=== PATIENT | male | born 1970 | race Caucasian/White ===

== ENCOUNTER → 2019-08-07 14:16 | Outpatient (BNVA) | payer MEDICARE, MEDICAID, SELFPAY | PROVIDERS: Family Provider Family Medicine; PCP Family Medicine; Visit Provider Nurse Practitioner | DX: F20.89 Other schizophrenia (principal); G47.30 Sleep apnea, unspecified | CPT/HCPCS: 99213 ==

== ENCOUNTER → 2019-09-04 14:20 | Outpatient (BNVA) | payer MEDICARE, MEDICAID, SELFPAY | PROVIDERS: Family Provider Family Medicine; PCP Family Medicine; Visit Provider Nurse Practitioner | DX: F20.89 Other schizophrenia (principal) | CPT/HCPCS: 80061; 83036; 99213 ==

== ENCOUNTER → 2019-10-02 14:27 | Outpatient (BNVA) | payer MEDICARE, MEDICAID, SELFPAY | PROVIDERS: Family Provider Family Medicine; PCP Family Medicine; Visit Provider Nurse Practitioner | DX: G47.30 Sleep apnea, unspecified (principal); F20.89 Other schizophrenia | CPT/HCPCS: 99213 ==

== ENCOUNTER → 2019-10-30 14:21 | Outpatient (BNVA) | payer MEDICARE, MEDICAID, SELFPAY | PROVIDERS: Family Provider Family Medicine; PCP Family Medicine; Visit Provider Nurse Practitioner | DX: G47.30 Sleep apnea, unspecified (principal); F20.89 Other schizophrenia | CPT/HCPCS: 99213 ==

== ENCOUNTER → 2019-12-04 08:21 | Outpatient (BNVA) | payer MEDICARE, MEDICAID, SELFPAY | PROVIDERS: Family Provider Family Medicine; PCP Family Medicine; Visit Provider Nurse Practitioner | DX: F20.89 Other schizophrenia (principal); F41.1 Generalized anxiety disorder | CPT/HCPCS: 99213 ==

== ENCOUNTER → 2019-12-24 14:48 | Outpatient (BNVA) | payer MEDICARE, MEDICAID, SELFPAY ==
[2019-09-11 10:32] VITALS: BP 122/78
== END ==
PROVIDERS: Family Provider Family Medicine; PCP Family Medicine; Visit Provider Family Medicine
DX: I10 Essential (primary) hypertension (principal); E03.9 Hypothyroidism, unspecified; E78.5 Hyperlipidemia, unspecified; E11.9 Type 2 diabetes mellitus without complications
CPT/HCPCS: 80053; 82044; 84443

== ENCOUNTER → 2020-01-02 08:22 | Outpatient (BNVA) | payer MEDICARE, MEDICAID, SELFPAY ==
[2019-09-11 10:32] VITALS: BP 122/78
== END ==
PROVIDERS: Family Provider Family Medicine; PCP Family Medicine; Visit Provider Nurse Practitioner
DX: G47.30 Sleep apnea, unspecified (principal); F20.89 Other schizophrenia
CPT/HCPCS: 99213

== ENCOUNTER → 2020-01-30 08:45 | Outpatient (BNVA) | payer MEDICARE, MEDICAID, SELFPAY ==
[2019-09-11 10:32] VITALS: BP 122/78
== END ==
PROVIDERS: Family Provider Family Medicine; PCP Family Medicine; Visit Provider Nurse Practitioner
DX: F20.89 Other schizophrenia (principal); F43.12 Post-traumatic stress disorder, chronic
CPT/HCPCS: 99213

== ENCOUNTER → 2020-02-04 14:17 | Outpatient (BNVA) | payer MEDICARE, MEDICAID, SELFPAY ==
[2019-09-11 10:32] VITALS: BP 122/78
== END ==
PROVIDERS: Family Provider Family Medicine; PCP Family Medicine; Visit Provider Nurse Practitioner
DX: Z79.899 Other long term (current) drug therapy (principal)
CPT/HCPCS: 80061; 83036

== ENCOUNTER → 2020-02-27 08:00 | Outpatient (BNVA) | payer MEDICARE, MEDICAID, SELFPAY ==
[2020-02-11 09:56] VITALS: BP 157/97; BMI 40.1
== END ==
PROVIDERS: Family Provider Family Medicine; Visit Provider Nurse Practitioner
DX: F20.89 Other schizophrenia (principal)
CPT/HCPCS: 96372; 99213

== ENCOUNTER → 2020-03-26 12:00 | Outpatient (BNVA) | payer MEDICAID, SELFPAY ==
[2020-02-11 09:56] VITALS: BP 157/97; BMI 40.1
== END ==
PROVIDERS: Family Provider Family Medicine; Visit Provider Nurse Practitioner
DX: G47.30 Sleep apnea, unspecified (principal); F20.89 Other schizophrenia
CPT/HCPCS: 99213

== ENCOUNTER → 2020-04-23 11:54 | Outpatient (BNVA) | payer MEDICARE, MEDICAID, SELFPAY ==
[2020-02-11 09:56] VITALS: BP 157/97; BMI 40.1
== END ==
PROVIDERS: Family Provider Family Medicine; Visit Provider Nurse Practitioner
DX: F20.89 Other schizophrenia (principal)
CPT/HCPCS: 96372; 99213

== ENCOUNTER → 2020-05-21 11:54 | Outpatient (BNVA) | payer MEDICARE, MEDICAID, SELFPAY ==
[2020-02-11 09:56] VITALS: BP 157/97; BMI 40.1
== END ==
PROVIDERS: Family Provider Family Medicine; Visit Provider Nurse Practitioner
DX: F20.89 Other schizophrenia (principal)
CPT/HCPCS: 96372; 99213

== ENCOUNTER 2020-06-01 10:18 | Outpatient (CLI) | payer MEDICARE, MEDICAID, SELFPAY ==
[2020-02-11 09:56] VITALS: BP 157/97; BMI 40.1
[2020-06-01 10:55] VITALS: BMI 38.9
--- NOTE | 2020-06-01 10:55 | ECG_ITS ---
[facility] Test Date: 2020-06-01 Pat Name: Boy Ramos Department: Room: Gender: Male Pusher Runner: : 1970 Requested By: Carley Rodriguez Order Number: [id number] Chio MD: SANCHEZ GUTIERREZ Interpretive Statements NAME OF STUDY: EXERCISE SESTAMIBI STRESS TEST INDICATION: Chest Pain, EXERCISE DATA: The patient was exercised by Tyler protocol. Baseline heart rate was 74 beats per minute. Baseline blood pressure was 145/92 millimeters of mercury. Target heart rate was 171 beats per minute. Maximum heart rate achieved was 153, which was 89 % of the target heart rate. Maximum blood pressure was 229/117 millimeters of mercury. Total exercise time was 4 minutes 30 seconds. Maximum METs achieved was 7.0, maximum VO2 was 24.5. The reason for ending the test was maximum effort achieved. The patient complained of shortness of breath during the stress test, which then resolved at the end of the test. ELECTROCARDIOGRAM: BASELINE: Sinus rhythm, normal axis, no significant ST-T changes at the baseline noted. EXERCISE: At the peak exercise level, no significant ST-T changes suggestive of ischemia noted. RECOVERY: During the recovery period, heart rate dropped appropriately. No significant ST-T changes in the recovery suggestive of ischemia noted. CONCLUSION: 1. Exercise capacity poor. 2. Heart rate response was appropriate. 3. Blood pressure response was hypertensive. 4. Symptoms not suggestive of ischemia. 5. Electrocardiogram portion of the stress test was not suggestive of ischemia. 6. Nuclear scan will be documented separately. Electronically Signed On 06-04-2020 18:03:54 CDT by SANCHEZ GUTIERREZ [id number]
--- NOTE | 2020-06-01 10:56 | NMCV_ITS ---
NM louise perf SPECT r/s* [id number] Byo Ramos Age: 50 Gender: M : 1970 Exam Date: 06/01/2020 11:36 Ordering Phys: Carley Rodriguez DO Technologist: DOMINICK Yu Exam Location: [facility] Indications: Chest pain STRESS TEST Please see separate stress test report in Ephiphany for full findings IMAGE PROTOCOL Rest/Stress 1 Exercise Day Radiopharmaceutical Dose (mCi) Administration Site Administered by Rest: Tc-99m 10.9 IV DOMINICK Lin Sestamibi Stress:Tc-99m 32.7 IV DOMINICK Yu Sestamipetra Rest: 01-Jun-2020 60 Discovery 630 Stress: 01-Jun-2020 30 Discovery 630 Radiopharmaceutical was injected at 85 % maximum heart rate. Images obtained in supine and prone position. SPECT RESULTS Technical Quality: Good Raw Data Analysis: Normal Image Corrections: Patient motion artifact - motion correction applied stress supine and rest images. Summed Stress Score: 1 Summed Rest Score: 2 Summed Difference Score: 1 PERFUSION FINDINGS Medium-sized area of decreased tracer uptake noted in basal to mid anterior wall on the rest images which improved significantly over stress images suggestive of artifact. Medium-sized area of fixed perfusion defect noted in basal to distal inferior wall on both rest and stress images suggestive of artifact versus scarring. FUNCTIONAL RESULTS (calculated via Gated SPECT) Stress Image LV EF (%): 69 Stress EDV (mL):84 TID: 0.7 Stress ESV (mL):26 Rest Image LV EF (%): 69 FUNCTIONAL FINDINGS: There is normal left ventricular systolic function. IMPRESSIONS This study is negative for ischemia. EKG segment will be documented separately. Khurram Schmitt MD (Electronically Signed) Final Date: 01 June 2020 18:27 S
[2020-06-01 13:23] VITALS: BP 189/73; PULSE 98
== END 2020-06-01 10:19 | disposition home or self-care (01) ==
LOC: CDL 10:21
PROVIDERS: Visit Provider Family Medicine
DX: R07.89 Other chest pain (principal)
CPT/HCPCS: 78452; 93017; A9500

== ENCOUNTER → 2020-06-08 14:46 | Outpatient (BNVA) | payer OTHER, SELFPAY ==
[2020-02-11 09:56] VITALS: BP 157/97; BMI 40.1
== END ==
PROVIDERS: Visit Provider Nurse Practitioner
DX: F20.89 Other schizophrenia (principal); Z79.899 Other long term (current) drug therapy
CPT/HCPCS: 80061; 83036

== ENCOUNTER → 2020-06-18 11:57 | Outpatient (BNVA) | payer MEDICARE, MEDICAID, SELFPAY ==
[2020-06-09 16:09] VITALS: BP 138/84; BMI 39.2
== END ==
PROVIDERS: Visit Provider Nurse Practitioner
DX: F20.89 Other schizophrenia (principal); G47.30 Sleep apnea, unspecified
CPT/HCPCS: 99213

== ENCOUNTER → 2020-07-23 11:57 | Outpatient (BNVA) | payer MEDICARE, MEDICAID, SELFPAY ==
[2020-06-09 16:09] VITALS: BP 138/84; BMI 39.2
== END ==
PROVIDERS: Visit Provider Nurse Practitioner
DX: F20.89 Other schizophrenia (principal)
CPT/HCPCS: 96372; 99213

== ENCOUNTER → 2020-08-20 15:23 | Outpatient (BNVA) | payer MEDICARE, MEDICAID, SELFPAY ==
[2020-06-09 16:09] VITALS: BP 138/84; BMI 39.2
== END ==
PROVIDERS: Visit Provider Nurse Practitioner
DX: F20.89 Other schizophrenia (principal)
CPT/HCPCS: 96372; 99213

== ENCOUNTER → 2020-09-16 10:11 | Outpatient (BNVA) | payer MEDICARE, MEDICAID, SELFPAY ==
[2020-06-09 16:09] VITALS: BP 138/84; BMI 39.2
== END ==
PROVIDERS: Visit Provider Family Medicine
DX: I10 Essential (primary) hypertension (principal); E03.9 Hypothyroidism, unspecified; E78.5 Hyperlipidemia, unspecified; E11.9 Type 2 diabetes mellitus without complications
CPT/HCPCS: 80053; 82043; 84443; 85025

== ENCOUNTER → 2020-09-21 13:31 | Outpatient (BNVA) | payer MEDICARE, MEDICAID, SELFPAY ==
[2020-06-09 16:09] VITALS: BP 138/84; BMI 39.2
== END ==
PROVIDERS: Visit Provider Nurse Practitioner
DX: F20.89 Other schizophrenia (principal)
CPT/HCPCS: 96372; 99214

== ENCOUNTER → 2020-10-25 14:52 | Outpatient (BNVA) | payer MEDICARE, MEDICAID, SELFPAY ==
[2020-06-09 16:09] VITALS: BP 138/84; BMI 39.2
== END ==
PROVIDERS: Visit Provider Nurse Practitioner
DX: F20.89 Other schizophrenia (principal)
CPT/HCPCS: 96372; 99214

== ENCOUNTER → 2020-11-25 14:51 | Outpatient (BNVA) | payer MEDICARE, MEDICAID, SELFPAY ==
[2020-06-09 16:09] VITALS: BP 138/84; BMI 39.2
== END ==
PROVIDERS: Visit Provider Nurse Practitioner
DX: F20.89 Other schizophrenia (principal); F43.12 Post-traumatic stress disorder, chronic
CPT/HCPCS: 96372; 99214

== ENCOUNTER → 2020-12-24 14:57 | Outpatient (BNVA) | payer MEDICARE, MEDICAID, SELFPAY ==
[2020-06-09 16:09] VITALS: BP 138/84; BMI 39.2
== END ==
PROVIDERS: Visit Provider Nurse Practitioner
DX: F20.89 Other schizophrenia (principal)
CPT/HCPCS: 96372; 99214

== ENCOUNTER → 2021-01-25 14:58 | Outpatient (BNVA) | payer MEDICARE, MEDICAID, SELFPAY ==
[2020-06-09 16:09] VITALS: BP 138/84; BMI 39.2
== END ==
PROVIDERS: Visit Provider Nurse Practitioner
DX: F20.89 Other schizophrenia (principal)
CPT/HCPCS: 99214; 96372

== ENCOUNTER → 2021-02-22 15:08 | Outpatient (BNVA) | payer MEDICARE, MEDICAID, SELFPAY ==
[2020-06-09 16:09] VITALS: BP 138/84; BMI 39.2
== END ==
PROVIDERS: Visit Provider Nurse Practitioner
DX: F20.89 Other schizophrenia (principal)
CPT/HCPCS: 96372; 99214

== ENCOUNTER → 2021-03-22 14:49 | Outpatient (BNVA) | payer MEDICARE, MEDICAID, SELFPAY ==
[2020-06-09 16:09] VITALS: BP 138/84; BMI 39.2
== END ==
PROVIDERS: Visit Provider Nurse Practitioner
DX: F20.89 Other schizophrenia (principal)
CPT/HCPCS: 96372; 99214

== ENCOUNTER → 2021-04-08 15:38 | Outpatient (BNVA) | payer MEDICARE, MEDICAID, SELFPAY ==
[2020-06-09 16:09] VITALS: BP 138/84; BMI 39.2
== END ==
PROVIDERS: PCP Family Medicine; Visit Provider Family Medicine
DX: E11.9 Type 2 diabetes mellitus without complications (principal); E03.9 Hypothyroidism, unspecified
CPT/HCPCS: 80053; 83036; 84443

== ENCOUNTER → 2021-04-26 14:47 | Outpatient (BNVA) | payer MEDICARE, MEDICAID, SELFPAY ==
[2020-06-09 16:09] VITALS: BP 138/84; BMI 39.2
== END ==
PROVIDERS: Visit Provider Nurse Practitioner
DX: F20.89 Other schizophrenia (principal)
CPT/HCPCS: 96372; 99214

== ENCOUNTER → 2021-05-26 14:53 | Outpatient (BNVA) | payer MEDICARE, MEDICAID, SELFPAY ==
[2020-06-09 16:09] VITALS: BP 138/84; BMI 39.2
== END ==
PROVIDERS: PCP Family Medicine; Visit Provider Nurse Practitioner
DX: F20.89 Other schizophrenia (principal)
CPT/HCPCS: 96372; 99214

== ENCOUNTER → 2021-06-07 16:14 | Outpatient (BNVA) | payer OTHER, SELFPAY ==
[2020-06-09 16:09] VITALS: BP 138/84; BMI 39.2
== END ==
PROVIDERS: PCP Family Medicine; Visit Provider Nurse Practitioner
DX: F20.89 Other schizophrenia (principal)
CPT/HCPCS: 80061

== ENCOUNTER → 2021-06-24 15:03 | Outpatient (BNVA) | payer MEDICARE, MEDICAID, SELFPAY ==
[2021-06-09 11:58] VITALS: BP 123/74; BMI 37.9
== END ==
PROVIDERS: PCP Family Medicine; Visit Provider Family Medicine
DX: Z12.5 Encounter for screening for malignant neoplasm of prostate (principal)
CPT/HCPCS: G0103

== ENCOUNTER → 2021-06-27 14:39 | Outpatient (BNVA) | payer MEDICARE, MEDICAID, SELFPAY ==
[2021-06-09 11:58] VITALS: BP 123/74; BMI 37.9
== END ==
PROVIDERS: Visit Provider Nurse Practitioner
DX: F20.89 Other schizophrenia (principal)
CPT/HCPCS: 96372; 99214

== ENCOUNTER → 2021-07-26 14:47 | Outpatient (BNVA) | payer MEDICARE, MEDICAID, SELFPAY ==
[2021-06-09 11:58] VITALS: BP 123/74; BMI 37.9
== END ==
PROVIDERS: Visit Provider Nurse Practitioner
DX: F20.89 Other schizophrenia (principal)
CPT/HCPCS: 99214

== ENCOUNTER → 2021-08-23 14:53 | Outpatient (BNVA) | payer MEDICARE, MEDICAID, SELFPAY ==
[2021-06-09 11:58] VITALS: BP 123/74; BMI 37.9
== END ==
PROVIDERS: Visit Provider Nurse Practitioner
DX: F20.89 Other schizophrenia (principal)
CPT/HCPCS: 96372; 99214

== ENCOUNTER → 2021-09-01 16:42 | Outpatient (BNVA) | payer MEDICARE, MEDICAID, SELFPAY ==
[2021-06-09 11:58] VITALS: BP 123/74; BMI 37.9
== END ==
PROVIDERS: PCP Family Medicine; Visit Provider Surgery
DX: Z20.822 Contact with and (suspected) exposure to COVID-19 (principal); Z12.11 Encounter for screening for malignant neoplasm of colon
CPT/HCPCS: 87635

== ENCOUNTER 2021-09-07 06:38 | Day surgery (SDC) | payer MEDICARE, MEDICAID, SELFPAY ==
[2021-06-09 11:58] VITALS: BP 123/74; BMI 37.9
[2021-09-06 10:48] VITALS: BMI 37.0
[2021-09-07] MEDS: sodium chloride 0.9% 1,000 ML 30 ML IV (06:58)
--- NOTE | 2021-09-07 07:19 | P.HP_ITS ---
Same Day Surgery H&P Indication for Procedure/HPI DATE OF PROCEDURE: September 07, 2021 CHIEF COMPLAINT/INDICATIONFOR SURGICAL PROCEDURE: screening PREOP DIAGNOSIS: diagnostic PLANNED PROCEDURE: Operation Date: 09/07/21 07:30 Proposed Procedures p Colonoscopy 06413 Z12.11(Not Applicable) - Pepe Kerr MD Medications/Allergies* Home Medications Medication Instructions Recorded Confirmed Type aspirin 325 mg tablet 325 mg PO DAILY tab 08/07/19 09/07/21 History omega-3 fatty acids 1,000 mg 1,000 mg PO BID 07/23/20 09/07/21 History capsule (Fish Oil Concentrate) multivitamin 1 tab PO DAILY 12/21/20 09/07/21 History benztropine 1 mg tablet 1 mg PO TID 09/06/21 09/07/21 History hydrochlorothiazide 25 mg tablet 25 mg PO DAILY 09/06/21 09/07/21 History losartan 50 mg tablet 50 mg PO DAILY 09/06/21 09/07/21 History Allergies/Adverse Reactions Allergy/AdvReac Type Severity Reaction Status Date / Time No Known Allergies Allergy Verified 09/07/21 06:53 Current Medications: Generic Name Dose Route Start Last Admin Trade Name Freq PRN Reason Stop Dose Admin Sodium Chloride 1,000 mls @ 30 mls/hr 09/07/21 07:00 09/07/21 06:58 Sodium Chloride 0.9% IV 09/08/21 06:59 30 mls/hr .Q24H TRENA Administration Pertinent History/Comorbid Conditions* Medical History (Updated 07/31/21 @ 22:34 by Cirilo Garcia DO) Benign essential HTN Dyslipidemia Hypothyroidism Other drug induced dystonia Other schizophrenia Severe obstructive sleep apnea Type 2 diabetes mellitus without complication, without long-term current use of insulin Surgical History (Updated 07/12/21 @ 08:36 by Pepe Kerr MD) H/O excision of mass 2011 tongue Family History (Updated 12/10/19 @ 14:13 by Moira Pedraza RN) CAD (coronary artery disease) Hyperlipidemia Cancer Social History Smoking and tobacco status: never smoked Second hand smoke exposure: No Alcohol intake: former Adopted: No Caregiver/support person: No Lives independently: Yes Household members: none Housing: Apartment Marital status: Single Number of children: 0 Number of grandchildren: 0 Highest education level completed: Master's Degree Education level details: Definity service: No Current occupational status: disabled Pets and animals: No History of recent travel: No ([place]) Leisure activites: reading and other Leisure activities details: watch TV Sexually active: No Current gender identity: Male Catia/Congregational: Denominational Special catia needs: No Agree to transfusion: Yes Financial difficulty paying for basics: Not Very Hard Pertinent Exam Findings alert, oriented x 3 and regular rate & rhythm Recommendations Surgery/Procedure today Coding Level of Care Code Acute Photograph Inspector for Marianna Conway
[2021-09-07 07:24] VITALS: BP 160/122; PULSE 107; RESP 22; TEMP 36.2; O2SAT 97
--- NOTE | 2021-09-07 09:31 | P.ANESASSM_ITS ---
Pre-Anesthetic Assessment Height/Weight: Height 1.92 m Weight 136.078 kg Temp Pulse Resp BP Pulse Ox 97.1 F L 107 H 22 H 160/122 97 09/07/21 07:24 09/07/21 07:24 09/07/21 07:24 09/07/21 07:24 09/07/21 07:24 Preop Diagnosis: diagnostic Operation Date: 09/07/21 07:30 Proposed Procedures p Colonoscopy 36413 Z12.11(Not Applicable) - Pepe Kerr MD Familial anesthetic complications: None Was Beta Bismark taken within 24 hours: N/A Was Clonidine taken within 24 hours: N/A Last intake: Intake Last Liquid Date 09/06/21 Last Liquid Time 23:30 Last Solid Date 09/05/21 Last Solid Time 23:00 Social No alcohol and No tobacco Airway Mallampati: Class IV Dentition: full Comments: Comments: Large neck circumference, and tongue tongue Pulmonary Sleep Apnea CV/HEM Stable Angina (negative stress test in 2019) and Hypertension Metabolic Diabetes Mellitus, Hyperlipidemia, Morbid Obesity and Thyroid Disease Anesthetic Plan ASA status: 3 Anesthesia: MAC Medications/Allergies Home Medications Medication Instructions Recorded Confirmed Last Taken Type aspirin 325 mg tablet 325 mg PO DAILY tab 08/07/19 09/07/21 09/05/21 History omega-3 fatty acids 1,000 mg 1,000 mg PO BID 07/23/20 09/07/21 09/05/21 History capsule (Fish Oil Concentrate) alcohol swabs 1 pad TOPICAL DAILY #120 ea 08/03/20 09/07/21 Unknown Rx blood sugar diagnostic (cashcloudTouch #100 ea 11/23/20 09/07/21 Unknown Rx Ultra Blue Test Strip) lancets 33 gauge (OneTouch Dellily #100 each 12/17/20 09/07/21 Unknown Rx Lancets) multivitamin 1 tab PO DAILY 12/21/20 09/07/21 09/05/21 History simvastatin 10 mg tablet 10 mg PO QDAY #30 tab 04/08/21 09/07/21 09/05/21 Rx metformin 500 mg tablet,extended 500 mg PO BID 30 Days #180 tab 04/13/21 09/07/21 09/05/21 Rx release 24 hr levothyroxine 25 mcg tablet 25 mcg PO DAILY 30 Days #90 tab 04/20/21 09/07/21 09/05/21 Rx (Synthroid) paliperidone 6 mg tablet,extended 6 mg PO .HS #30 tab 08/23/21 09/07/21 09/05/21 Rx release 24 hr (Invega) paliperidone palmitate 234 mg/1.5 234 mg (1.5 mL) IM Q30D #1.5 ml 08/23/21 09/07/21 08/23/21 Rx mL intramuscular syringe (Invega Sustenna) perphenazine 16 mg tablet 16 mg PO BID #60 tab 08/23/21 09/07/21 09/05/21 Rx valbenazine 80 mg capsule 80 mg PO QDAY #30 cap 08/23/21 09/07/21 09/05/21 Rx (Ingrezza) benztropine 1 mg tablet 1 mg PO TID 09/06/21 09/07/21 09/05/21 History hydrochlorothiazide 25 mg tablet 25 mg PO DAILY 09/06/21 09/07/21 09/05/21 History losartan 50 mg tablet 50 mg PO DAILY 09/06/21 09/07/21 09/05/21 History Allergies Allergy/AdvReac Type Severity Reaction Status Date / Time No Known Allergies Allergy Verified 09/07/21 06:53 Current Medications Generic Name Dose Route Start Last Admin Trade Name Freq PRN Reason Stop Dose Admin Sodium Chloride 1,000 mls @ 30 mls/hr 09/07/21 07:00 09/07/21 06:58 Sodium Chloride 0.9% IV 09/08/21 06:59 30 mls/hr .Q24H TRENA Administration PFSH Anesthesia Medical History (Updated 07/31/21 @ 22:34 by Cirilo Garcia DO) Benign essential HTN Dyslipidemia Hypothyroidism Other drug induced dystonia Other schizophrenia Severe obstructive sleep apnea Type 2 diabetes mellitus without complication, without long-term current use of insulin Surgical History (Updated 07/12/21 @ 08:36 by Pepe Kerr MD) H/O excision of mass 2011 tongue Family History Other CAD (coronary artery disease) Cancer Hyperlipidemia Social History (Updated 07/12/21 @ 08:22 by Micheal Rivas) Smoking and tobacco status: never smoked Second hand smoke exposure: No Alcohol intake: former Adopted: No Caregiver/support person: No Lives independently: Yes Household members: none Housing: Apartment Marital status: Single Number of children: 0 Number of grandchildren: 0 Highest education level completed: Master's Degree Education level details: Definity service: No Current occupational status: disabled Pets and animals: No History of recent travel: No ([place]) Leisure activites: reading and other Leisure activities details: watch TV Sexually active: No Current gender identity: Male Catia/Confucianist: Yarsanism Special catia needs: No Agree to transfusion: Yes Financial difficulty paying for basics: Not Very Hard Data Anesthesia Cardiac Studies: Sestamibi Stress Test (Cardiology) 06/01/20
[2021-09-07 10:47] VITALS: BP 185/119; PULSE 102; RESP 20; TEMP 36.1; O2SAT 95
[2021-09-07 10:57] VITALS: BP 142/101; PULSE 86; RESP 20; TEMP 36.1; O2SAT 96
--- NOTE | 2021-09-07 12:55 | ANE.PACU2 ---
Inpatient post-anesthesia follow up: Airway intact: Yes Vital signs: Temperature 97 F Pulse Rate 86 Respiratory Rate 20 Blood Pressure 142/101 Pulse Oximetry 96 Oxygen Delivery Me thod Room Air Oxygen Flow Rate Fraction of Inspir ed Oxygen Hydration adequate: Yes Nausea and vomiting: No Pain level: 1
== END 2021-09-07 11:21 | disposition home or self-care (01) ==
PROVIDERS: PCP Family Medicine; Visit Provider Surgery
PROC: 0DJD8ZZ Inspection of Lower Intestinal Tract, Via Natural or Artificial Opening Endoscopic (ICD-10-PCS; CPT 45378; principal; 2021-09-07 07:30)
DX: Z12.11 Encounter for screening for malignant neoplasm of colon (principal); Z79.82 Long term (current) use of aspirin; I10 Essential (primary) hypertension; E03.9 Hypothyroidism, unspecified; G47.33 Obstructive sleep apnea (adult) (pediatric); E11.9 Type 2 diabetes mellitus without complications; Z82.49 Family history of ischemic heart disease and other diseases of the circulatory system; K64.8 Other hemorrhoids; K92.1 Melena; E78.5 Hyperlipidemia, unspecified; E66.01 Morbid (severe) obesity due to excess calories; Z68.37 Body mass index [BMI] 37.0-37.9, adult; Z79.84 Long term (current) use of oral hypoglycemic drugs
CPT/HCPCS: G0121; J7030

== ENCOUNTER → 2021-09-20 14:48 | Outpatient (BNVA) | payer MEDICARE, MEDICAID, OTHER, SELFPAY ==
[2021-06-09 11:58] VITALS: BP 123/74; BMI 37.9
== END ==
PROVIDERS: PCP Family Medicine; Visit Provider Nurse Practitioner
DX: F20.89 Other schizophrenia (principal)
CPT/HCPCS: 96372; 99214

== ENCOUNTER → 2021-10-18 14:15 | Outpatient (BNVA) | payer MEDICARE, MEDICAID, SELFPAY ==
[2021-06-09 11:58] VITALS: BP 123/74; BMI 37.9
== END ==
PROVIDERS: PCP Family Medicine; Visit Provider Nurse Practitioner
DX: F20.89 Other schizophrenia (principal)
CPT/HCPCS: 96372; 99214

== ENCOUNTER → 2021-11-18 14:50 | Outpatient (BNVA) | payer MEDICARE, MEDICAID, SELFPAY ==
[2021-06-09 11:58] VITALS: BP 123/74; BMI 37.9
== END ==
PROVIDERS: PCP Family Medicine; Visit Provider Nurse Practitioner
DX: F20.89 Other schizophrenia (principal)
CPT/HCPCS: 96372; 99214

== ENCOUNTER → 2021-12-06 13:59 | Outpatient (BNVA) | payer OTHER, SELFPAY ==
[2021-06-09 11:58] VITALS: BP 123/74; BMI 37.9
== END ==
PROVIDERS: PCP Family Medicine; Visit Provider Nurse Practitioner
DX: F20.89 Other schizophrenia (principal); Z79.899 Other long term (current) drug therapy
CPT/HCPCS: 80061; 83036

== ENCOUNTER → 2021-12-22 14:41 | Outpatient (BNVA) | payer MEDICARE, MEDICAID, SELFPAY ==
[2021-12-13 16:31] VITALS: BP 135/87; BMI 36.7
== END ==
PROVIDERS: PCP Family Medicine; Visit Provider Nurse Practitioner
DX: F20.89 Other schizophrenia (principal)
CPT/HCPCS: 96372; 99214

== ENCOUNTER → 2021-12-23 13:23 | Outpatient (BNVA) | payer MEDICAID, SELFPAY ==
[2021-12-13 16:31] VITALS: BP 135/87; BMI 36.7
== END ==
PROVIDERS: PCP Family Medicine; Visit Provider Family Medicine
DX: I10 Essential (primary) hypertension (principal)
CPT/HCPCS: 80053; 82043; 85025

== ENCOUNTER → 2022-01-05 14:54 | Outpatient (BNVA) | payer MEDICAID, SELFPAY ==
[2021-12-13 16:31] VITALS: BP 135/87; BMI 36.7
== END ==
PROVIDERS: PCP Family Medicine; Visit Provider Nurse Practitioner
DX: F20.89 Other schizophrenia (principal)
CPT/HCPCS: 99214

== ENCOUNTER → 2022-01-17 14:45 | Outpatient (BNVA) | payer MEDICAID, SELFPAY ==
[2021-12-13 16:31] VITALS: BP 135/87; BMI 36.7
== END ==
PROVIDERS: PCP Family Medicine; Visit Provider Nurse Practitioner
DX: F20.89 Other schizophrenia (principal)
CPT/HCPCS: 96372; 99214

== ENCOUNTER → 2022-06-23 13:20 | Outpatient (BNVA) | payer MEDICARE, MEDICAID, SELFPAY ==
[2021-12-13 16:31] VITALS: BP 135/87; BMI 36.7
== END ==
PROVIDERS: PCP Family Medicine; Visit Provider Family Medicine
DX: E03.9 Hypothyroidism, unspecified (principal); Z12.5 Encounter for screening for malignant neoplasm of prostate; E11.9 Type 2 diabetes mellitus without complications
CPT/HCPCS: 80053; 83036; 84443; G0103

== ENCOUNTER → 2022-12-05 13:56 | Outpatient (BNVA) | payer MEDICAID, SELFPAY ==
[2021-12-13 16:31] VITALS: BP 135/87; BMI 36.7
== END ==
PROVIDERS: PCP Family Medicine; Visit Provider Dermatology
DX: Z79.899 Other long term (current) drug therapy (principal)
CPT/HCPCS: 80061; 83036

== ENCOUNTER → 2022-12-15 14:19 | Outpatient (BNVA) | payer MEDICAID, SELFPAY ==
[2021-12-13 16:31] VITALS: BP 135/87; BMI 36.7
== END ==
PROVIDERS: PCP Family Medicine; Visit Provider Family Medicine
DX: E03.9 Hypothyroidism, unspecified (principal); I10 Essential (primary) hypertension
CPT/HCPCS: 80053; 84443; 85025

== ENCOUNTER → 2023-06-15 15:14 | Outpatient (BNVA) | payer MEDICAID, SELFPAY ==
[2022-12-18 16:24] VITALS: BP 139/87; BMI 38.5
== END ==
PROVIDERS: PCP Family Medicine; Visit Provider Family Medicine
DX: E11.9 Type 2 diabetes mellitus without complications (principal); Z12.5 Encounter for screening for malignant neoplasm of prostate; Z23 Encounter for immunization; E03.9 Hypothyroidism, unspecified
CPT/HCPCS: 80053; 83036; 84443; G0103

== ENCOUNTER 2023-11-18 07:22 | Emergency (ER) | payer MEDICARE, MEDICAID, SELFPAY ==
[2022-12-18 16:24] VITALS: BP 139/87; BMI 38.5
[2023-11-18 07:23] VITALS: BP 156/101
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
[2023-11-18] MEDS: sodium chloride 0.9% 1,000 ML 999 ML IV (07:40)
[2023-11-18 07:41] LABS: Basophils % 0.2 %; Eosinophils % 0.1 %; Hematocrit 42.1 % (37-53); Lymphocytes # 1.4 10^3/uL (0.8-4.8); Lymphocytes % 14.6 %; Mean Corpuscular HGB Conc 33.3 g/dL (30-55); Mean Corpuscular Hemoglobin 29.7 pg (27-33); Mean Corpuscular Volume 89.4 fl (82-101); Mean Platelet Volume 8.7 fL (7.4-10.4); Monocytes # 0.6 10^3/uL (0.2-0.9); Monocytes % 5.9 %; Neutrophils # 7.37 10^3/uL (1.8-7.7); Nucleated Red Blood Cells % 0 %; Platelet Count 303 10^3/cmm (157-399); Red Blood Count 4.71 10^6/uL (3.85-5.65); Red Cell Distribution Width 12.7 % (12.1-15.1); White Blood Count 9.33 10^3/uL (3.29-11.43)
[2023-11-18] MEDS: tetanus-dipt-pertussis 0.5 mL SDV IM (07:41)
--- NOTE | 2023-11-18 07:51 | PC.PHAR ---
pt states he hasnt been taking his medications for 3 weeks-pt states only been taking his aspirin-fish oil and multivitamins-pt states his prescription medication wasnt working-medications entered are what ext med history shows has been filled notes are made in the pharmacy comments with last fill dates
[2023-11-18] MEDS: LORazepam 2 mg/mL INJ 10 mL MDV IVP (07:53)
[2023-11-18] MEDS: ziprasidone 20 mg/mL SDV IM (07:53)
[2023-11-18 07:57] VITALS: BP 150/99; PULSE 130; O2SAT 98
[2023-11-18 08:02] LABS: Alanine Aminotransferase 29 U/L (0-41); Albumin Level 4.3 g/dL (3.5-5.2); Alkaline Phosphatase 80 U/L (40-130); Anion Gap 21.5 (5-19); Aspartate Amino Transferase 27 U/L (0-40); Blood Urea Nitrogen 13 mg/dL (6-20); Calcium 8.8 mg/dL (8.5-10.5); Carbon Dioxide 19 mmol/L (22-29); Chloride 101 mmol/L (98-107); Creatinine Clr Calc Pharmacy 102.7004; Globulin 3.2 g/dL (1.3-4.6); Glomerular Filtration Rate 70.3 mL/min (90-130); Glucose 198 mg/dL (65-115); Osmolality Calculated 292 mOsm/kg (285-295); Potassium 3.5 mmol/L (3.5-5.1); Sodium 138 mmol/L (136-145); Total Bilirubin 1.5 mg/dL (0.15-1.2); Total Protein 7.5 g/dL (6.6-8.7)
[2023-11-18 08:04] LABS: Acetaminophen < 5.0 ug/mL (10-30); Alcohol Level < 10 mg/dL (0-10); Salicylate < 0.3 mg/dL (3-10)
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
[2023-11-18 08:14] VITALS: BP 161/97
[2023-11-18 08:14] LABS: Blood Urine 3+ (Negative); Glucose Urine UA 4+ (Normal); Ketones Urine 2+ (Negative); Nitrate Urine Negative (Negative); Protein Urine Neg (Negative); Specific Gravity, Urine 1.025 (1.005-1.030); Urine Appearance Clear (CLEAR); Urine Color Yellow (Yellow); pH Urine 6 (5-7)
--- NOTE | 2023-11-18 08:14 | ECG_ITS ---
[facility] Test Date: 2023-11-18 Pat Name: Boy Ramos Department: Room: Gender: Male Sludge Filtration Attendant: : 1970 Requested By: Shamar Naranjo Order Number: [id number] Chio MD: Pino Rain M.D. Measurements Intervals [place] Rate: 133 P: 54 TX: 159 QRS: 44 QRSD: 95 T: 63 QT: 313 QTc: 467 Interpretive Statements SINUS TACHYCARDIA NONSPECIFIC T-WAVE ABNORMALITY ABNORMAL RHYTHM ECG Compared to ECG 09/01/2015 20:45:01 T-wave abnormality now present Short TX interval no longer present Electronically Signed On 11-18-2023 20:50:21 CDT by Pino Rain M.D. [id number]
[2023-11-18 08:15] LABS: Add Urine Microscopic? YES; Bilirubin Urine Neg (Negative); Leukocyte Esterase Urine Negative (Negative); Urobilinogen Urine Norm (Negative)
[2023-11-18 08:16] LABS: Bacteria Urine TRACE /hpf; Mucus Urine 1+ /hpf; WBC Urine RARE /hpf (0-5)
[2023-11-18 08:17] LABS: Add Urine Culture? No
[2023-11-18 08:21] LABS: Amphetamines Screen Urine Negative (Negative); Barbiturates Screen Urine Negative (Negative); Benzodiazepines Screen Urine Negative (Negative); Cocaine Screen Urine Negative (Negative); Opiate Screen Urine Negative (Negative); PCP Screen Urine Negative (Negative); THC Screen Urine Negative (Negative)
[2023-11-18 08:26] VITALS: BP 151/73; PULSE 122; O2SAT 96
[2023-11-18] MEDS: morphine 4 mg/mL SDV 1 mL 2 MG IVP (08:46)
== END 2023-11-18 09:39 ==
PROVIDERS: Emergency Provider Family Medicine; PCP Family Medicine
DX: T20.39XA Burn of third degree of multiple sites of head, face, and neck, initial encounter (principal); X77.8XXA Intentional self-harm by other hot objects, initial encounter; Z87.891 Personal history of nicotine dependence; I10 Essential (primary) hypertension; E11.9 Type 2 diabetes mellitus without complications; E78.5 Hyperlipidemia, unspecified; Z79.82 Long term (current) use of aspirin; Z79.84 Long term (current) use of oral hypoglycemic drugs; Z23 Encounter for immunization
CPT/HCPCS: 80053; 80306; 80307; 81001; 85025; 90471; 90715; 93005; 96361; 96372; 96374; 96375; 99285; J2060; J2270; J3486; J7030